=== PATIENT | male | born 1980 | race Caucasian/White ===

== ENCOUNTER 2019-08-17 13:02 | Inpatient (IN) ==
[2019-08-17] MEDS ORDERED: ASPIRIN PO ONE (13:15)
--- NOTE | 2019-08-17 13:36 | Diag Imaging Result Doc PS360 ---
CHEST-2 VIEWS - 08/17/2019 INDICATION: UT COMPARISON: None FINDINGS: There is cardiomegaly. There is mild pulmonary vascular congestion. No infiltrates or edema. No pneumothorax or pleural effusion. IMPRESSION: Cardiomegaly and mild pulmonary vascular congestion. Electronically signed by Nitesh Jones 08/17/2019 1:34 PM
[2019-08-17 13:42] LABS: BASO# 0.06 X1000 (0.0-0.2); BASO% 0.5 % (0.0-0.8); EOS# 0.08 X1000 (0.0-0.7); EOS% 0.7 % (0.0-10.0); HEMATOCRIT 44.5 % (42.0-52.0); HEMOGLOBIN 14.4 g/dL (14.0-18.0); IMM GRAN# 0.05 X1000 (0.0-0.04); IMM GRAN% 0.4 % (0.0-0.5); LYMPH% 16.6 % (20.5-51.1); MCH 26.4 PG (27-31); MCHC 32.4 g/dL (33-37); MCV 81.5 FL (81-99); MONO# 0.67 X1000 (0.11-0.59); MONO% 5.8 % (1.7-9.3); MPV 10.6 FL (7.4-10.4); NEUT# 8.71 X1000 (1.4-6.5); PLT 338 X1000 (130-400); RBC 5.46 XMIL (4.7-6.1); RDW 16.6 % (11.5-14.5); WBC 11.47 X1000 (4.8-10.8)
[2019-08-17 13:58] LABS: INR 1.05; PROTIME 13.8 Seconds (11.0-16.0)
[2019-08-17 13:59] LABS: PTT 27.7 Seconds (22.3-41.8)
--- NOTE | 2019-08-17 14:08 | EKG Report ---
Test Performed on : 08/17/2019 12:26:56 PM Test Reason : RECENT SC Blood Pressure : / mmHG Vent. Rate : 119 BPM Atrial Rate : 119 BPM P-R Int : 142 ms QRS Dur : 072 ms QT Int : 444 ms P-R-T Axes : 081 238 186 degrees QTc Int : 624 ms Sinus tachycardia. Possible Left atrial enlargement Right superior axis deviation Right ventricular hypertrophy Inferior infarct , age undetermined Anteroseptal infarct , age undetermined Marked ST abnormality, possible lateral subendocardial injury Prolonged QT Abnormal ECG No previous ECGs available Confirmed by Mando MCLAUGHLIN, Jay Shipley ([id number]) on 08/18/2019 2:35:02 PM
[2019-08-17 14:33] LABS: AGAP 14; ALB/GLOB RATIO 1.5; ALBUMIN 4.4 g/dL (3.5-5.0); ALKALINE PHOSPHATASE 159 U/L (32-122); BUN 12 mg/dL (8-22); CALCIUM 9.6 mg/dL (8.8-10.2); CHLORIDE 102 mmol/L (98-107); COSMO 276; CREATININE 0.8 mg/dL (0.7-1.2); ESTIMATED GFR > 60; GLUCOSE 140 mg/dL (70-104); GOT 27 U/L (10-34); GPT 49 U/L (10-44); SODIUM 137 mmol/L (136-145); TCO2 21 mmol/L (25-35); TOTAL BILIRUBIN 0.45 mg/dL (0.20-1.00); TOTAL PROTEIN 7.4 g/dL (6.3-8.3)
[2019-08-17] MEDS ORDERED: PRINIVIL PO SCH (18:15)
[2019-08-17] MEDS ORDERED: LOVENOX SUBQ ONE (19:06)
[2019-08-17] MEDS ORDERED: VASOTEC IV PRN (19:07)
[2019-08-17] MEDS: LOPRESSOR PO SCH (19:41)
[2019-08-17] MEDS: LIPITOR PO SCH (19:42)
[2019-08-17] MEDS: PRINIVIL PO SCH (19:42)
[2019-08-17] MEDS ORDERED: LOPRESSOR PO SCH (21:00)
[2019-08-18] MEDS: RESTORIL PO PRN ×2 (00:33→22:36)
[2019-08-18] MEDS: PRINIVIL PO SCH ×3 (00:35→22:36)
[2019-08-18] MEDS: LIPITOR PO SCH ×2 (00:36→22:36)
[2019-08-18] MEDS: LOPRESSOR PO SCH ×4 (00:36→22:36)
--- NOTE | 2019-08-18 07:22 | EKG Report ---
Test Performed on : 08/18/2019 06:57:21 AM Test Reason : chest pain Blood Pressure : / mmHG Vent. Rate : 105 BPM Atrial Rate : 105 BPM P-R Int : 170 ms QRS Dur : 088 ms QT Int : 314 ms P-R-T Axes : 063 251 058 degrees QTc Int : 415 ms Sinus tachycardia. Possible Left atrial enlargement Right superior axis deviation Right ventricular hypertrophy Inferior infarct (cited on or before 17-AUG-2019) Anteroseptal infarct (cited on or before 17-AUG-2019) Abnormal ECG When compared with ECG of 17-AUG-2019 12:26, (Unconfirmed) Serial changes of evolving Anteroseptal infarct present Confirmed by Mnado MCLAUGHLIN, Jay Shipley ([id number]) on 08/18/2019 2:35:51 PM
[2019-08-18] MEDS: ASPIRIN PO SCH (08:36)
--- NOTE | 2019-08-18 08:36 | Diag Imaging Result Doc PS360 ---
EXAM: CHEST-2 VIEWS 08/18/2019 HISTORY: heart cath TECHNIQUE: PA and lateral chest COMMENT: The appearance of the chest has not changed significantly since 08/17/2019. There are no earlier previous studies available for comparison. There is a slightly prominent interstitial pattern in the lung bases. There may be some fluid in the fissures particularly the minor fissure. IMPRESSION: Minimal interstitial pulmonary edema and pleural fluid collections. Electronically signed by Tommy Sanchez 08/18/2019 8:34 AM
[2019-08-18] MEDS ORDERED: CLAVE TWINSITE 32 IN 11959 ONE (09:43)
[2019-08-18] MEDS ORDERED: NS 1,000 ML ONE (09:43)
[2019-08-18] MEDS ORDERED: DEMEROL ONE (09:43)
[2019-08-18] MEDS ORDERED: VERSED ONE (09:43)
[2019-08-18] MEDS ORDERED: ANESTHESIA PB SET 88 IN 5742 ONE (09:43)
[2019-08-18] MEDS ORDERED: MORPHINE ONE ×2 (10:02→10:39)
--- NOTE | 2019-08-18 10:24 | ECHO REPORT ---
ORDER DATE: 08/17/2019 INDICATION: NV. FINDINGS: 1. Right atrium appears normal in size at 3.4 cm. 2. Trace tricuspid regurgitation. Insufficient data to estimate RV systolic pressure. 3. Normal RV size and systolic function. 4. No significant pulmonic insufficiency. 5. Mild left atrial enlargement with a volume index of 34. 6. No mitral valve prolapse. Trace mitral regurgitation. 7. Normal LV size, end-diastolic dimension of 4.8 cm. Normal wall thicknesses with a posterior and interventricular septal wall thickness of 1.1 cm each. LV systolic function appears to be reduced on the order of 30%. There is anterior septal, anterior and apical wall motion abnormalities. Unfortunately echo contrast was not used on this study and cannot completely rule out LV thrombus. 8. Aortic valve opens well. No evidence of stenosis or insufficiency. 9. Aorta appears normal in visualized segments. 10. No pericardial effusion seen. cc: MD Yvon Franco MD
[2019-08-18] MEDS ORDERED: NS 1,000 ML IV SCH (11:30)
--- NOTE | 2019-08-18 11:43 | EKG Report ---
Test Performed on : 08/18/2019 11:30:32 AM Test Reason : post heart cath Blood Pressure : / mmHG Vent. Rate : 098 BPM Atrial Rate : 098 BPM P-R Int : 170 ms QRS Dur : 090 ms QT Int : 348 ms P-R-T Axes : 057 250 064 degrees QTc Int : 444 ms Normal sinus rhythm. Possible Left atrial enlargement Right superior axis deviation Anteroseptal infarct (cited on or before 17-AUG-2019) Abnormal ECG When compared with ECG of 18-AUG-2019 06:57, (Unconfirmed) No significant change was found Confirmed by Mando MCLAUGHLIN, Jay Shipley ([id number]) on 08/18/2019 2:36:31 PM
--- NOTE | 2019-08-18 13:15 | ECHO REPORT ---
ORDER DATE: 08/18/2019 INTERPRETING PHYSICIAN: Dr. Jamil Henson DESCRIPTION OF STUDY: A 2D echocardiogram limited with Optison to assess left ventricular function. ECHOCARDIOGRAPHIC MEASUREMENTS: 1. Interventricular septum 0.8. 2. Left ventricular diastolic diameter 6.3. 3. Left ventricular posterior wall 0.9. SUMMARY OF THE 2-DIMENSIONAL IMAGIN. Optison was injected. 2. Left ventricle was dilated with severely reduced systolic function. Estimated ejection fraction of 25%. 3. Left ventricular apex is dyskinetic. There is a suggestion off layered thrombus in the dyskinetic segment of the left ventricular apex. 4. There is no pericardial effusion. cc: MD Yvon Denson MD
--- NOTE | 2019-08-18 13:35 | CARDIAC CATH REPORT ---
DATE: 08/18/2019 REQUESTING: Yvon Verma MD. REASON : Patient with recent myocardial infarction, congestive heart failure. PROCEDURES: 1. Left heart catheterization. 2. Selective bilateral coronary arteriography. 3. Left ventriculography. 4. Opacification of right femoral artery with deployment of 6 [place]uvian Angio-Seal device. DESCRIPTION: The patient was brought to the [facility] in a fasting state. He received 1 dose of Demerol 25 mg, 2 doses of morphine 3 mg, and 1 dose of Versed 1 mg for sedation. The right groin was infiltrated with lidocaine and a 6 [place] sheath was inserted into the right femoral artery by following the modified Seldinger technique. Then using a 6 [place]ian left Tori 4 catheter, the left coronary artery was selectively opacified in multiple projections. Thereafter, I attempted to cannulate the right coronary artery first with a right Tori catheter, however, this was not feasible initially. Then we performed an LV gram using a 6 [place]uvian multipurpose catheter in the 30 degree DUVAL projection and 60 degree MEG projection by hand injection. The LVEDP was noted to be markedly elevated. Then, we proceeded to perform opacification of the right coronary artery. I attempted several catheters using the multipurpose catheter 6 [place]uvian A- 2, then we used the Amplatz right 2 and a 6 [place] right Tori 5. Finally when we fell back on the right Tori 4 and eventually were able to cannulate the ostium. It seemed like the plane of the right coronary artery had been tilted possibly because of the enlargement of the left ventricle. At any rate, the takeoff of the right coronary artery was somewhat vertical and sort of outward to the right. Then after this, we removed all the catheters, the sheath was flushed. The right femoral artery opacified and then Angio-Seal device was deployed successfully. The patient tolerated the procedure well without complications. SUMMARY OF HEMODYNAMIC FINDINGS: Central aortic pressure 111/89, left ventricular pressure 126/38, post LV gram 117/34, final central aortic pressure 122/91. This indicates marked elevation of the left ventricular end-diastolic pressure. SUMMARY OF THE ANGIOGRAPHIC FINDINGS: 1. Left main coronary artery: The vessel appears to be anatomically normal, divides into LAD and circumflex. 2. Left anterior descending coronary artery: This vessels give rise to a proximal septal and then a proximal large diagonal and then it becomes completely occluded. There is a trickle of blood going into what appears to be a totally occluded LAD. The LAD is very atretic. 3. Circumflex coronary artery: The circumflex coronary artery is a nondominant vessel. It basically gives rise to a first tiny lateral vessel then gives rise to a medium size lateral branch and then distally gives rise to a good size posterolateral vessel and a terminal tiny A- V branch. Left circumflex coronary artery appears to be free of any major stenosis. 4. Right coronary artery: The right coronary artery had a vertical rightward takeoff. The vessel proximally seems to be free of any serious obstruction. There is a 25% plaque proximally and another one 30%. The right coronary artery gives rise to a sinus kendra branch and right ventricular branch. Distally gives rise to a posterior descending branch which is normal, and also normal-looking posterolateral vessel. I did not appreciate any great deal of collateral going into the LAD territory. LEFT VENTRICULOGRAM: Left ventriculogram in the 30 degree DUVAL projection and 60 degree DUVAL projection shows akinesis of the anteroapical and septal portion of the left ventricle. Global ejection fraction is probably in the order of 30%. The root of the aorta is somewhat dilated. No aortic regurgitation was noted when I injected the right coronary artery nonselectively. OPACIFICATION OF THE RIGHT FEMORAL ARTERY: The right femoral artery is unremarkable. Angio-Seal device was deployed successfully. SUMMARY: This study shows: 1. Severe left coronary artery disease with total occlusion of the left anterior descending coronary artery in its mid section immediately after the origin of a large septal branch and a major diagonal branch. 2. Mild disease in the right coronary artery, sequential plaques of 25% to 30% in the proximal and mid section. 3. Unremarkable circumflex. 4. Dilated left ventricle with severely impaired systolic function in the range of 30% with anteroapical and septal akinesis to dyskinesis. 5. Markedly elevated LVEDP. 6. Unremarkable right femoral artery with deployment of 6 [place]uvian Angio-Seal device. There was no evidence of any significant degree of mitral valve regurgitation and there was no evidence of aortic stenosis nor evidence of significant aortic regurgitation on nonselective opacification of the right coronary artery during the attempt at opacifying it. RECOMMENDATIONS: At this time, the patient will be treated medically. We will probably consider doing a thallium viability study or a cardiac MR to determine viability of the anteroapical portion and then decide if we need to pursue any significant procedure like intervening on the totally occluded LAD. My suspicion is that probably he will have to be just treated medically. cc: MD Yvon Zaidi MD
[2019-08-18] MEDS ORDERED: LASIX IV ONE (19:03)
[2019-08-18] MEDS ORDERED: COUMADIN PO SCH (21:00)
[2019-08-18] MEDS: ALDACTONE PO SCH (22:37)
--- NOTE | 2019-08-18 23:23 | PROGRESS NOTE ---
DATE: 08/18/2019 SUBJECTIVE: The patient continues without chest discomfort or shortness of breath on room air. He had cardiac catheterization/coronary angiography performed today which demonstrated occluded left anterior descending coronary artery, giving rise to a diagonal branch and septal environmental services aide, with evidence of previous anteroapical infarction; mild coronary atherosclerosis evident in dominant right coronary artery; elevated left ventricular end-diastolic pressure demonstrated. OBJECTIVE: Blood pressure 118/79, heart rate 95, oxygen saturation 97% on room air. There is no significant jugular venous distention. Chest is clear to auscultation. Cardiac exam reveals a regular rate and rhythm without appreciable murmur or gallop. There is no evidence of peripheral edema. LABORATORY DATA: Includes initial troponin 21 with followup troponin of 24. Initial CPK is 56 with followup CPK 65. Triglycerides 252, total cholesterol 116, LDL cholesterol 77, VLDL cholesterol 50, HDL cholesterol 26. IMPRESSION: 1. Recent myocardial infarction involving mid left anterior descending coronary artery, with resultant anteroapical infarct. 2. Possible layered thrombus and dyskinetic apex. 3. Elevated left ventricular end-diastolic pressure consistent with acute systolic heart failure. 4. Hypertension. 5. Hyperlipidemia. RECOMMENDATIONS: 1. Continue medical management of patient's coronary atherosclerosis, as the patient appears to have completed anteroapical infarction, based on clinical presentation and angiographic findings. 2. Add diuretic therapy, given significantly elevated left ventricular end-diastolic pressure. We will initiate Lasix low dose as well as spironolactone. 3. Anticoagulate, given left ventricular thrombus and fairly recent apical myocardial infarction, with apical dyskinesis. cc: Yvon Verma MD
[2019-08-19 06:33] LABS: INR 1.07
[2019-08-19] MEDS: PRINIVIL PO SCH (08:02)
[2019-08-19] MEDS: ALDACTONE PO SCH (08:02)
[2019-08-19] MEDS: ASPIRIN PO SCH (08:02)
[2019-08-19] MEDS: LOPRESSOR PO SCH (08:03)
[2019-08-19] MEDS ORDERED: LASIX PO SCH (09:00)
[2019-08-19 11:55] VITALS: BP 109/76
--- NOTE | 2019-08-19 19:02 | PROGRESS NOTE ---
DATE: 08/19/2019 SUBJECTIVE: Patient continues without chest discomfort or dyspnea on room air. He has ambulated several times. OBJECTIVE: Blood pressure 109/76, heart rate 91, oxygen saturation 98% on room air. There is no significant jugular venous distention.Chest: Clear to auscultation bilaterally. Cardiac Exam: Reveals a regular rate and rhythm without appreciable murmur or gallop. There is no evidence of peripheral edema. LABORATORY DATA: Includes a pro-time 14.0, INR 1.07. Creatinine 0.9. Magnesium 2.2. IMPRESSION: 1. Recent myocardial infarction involving left anterior descending coronary with resultant anteroapical infarct. 2. Layered thrombus and dyskinetic apex. 3. Systolic heart failure. Patient appears to be improved with respect to this. 4. Hypertension. 5. Hyperlipidemia. RECOMMENDATIONS: 1. Continue current medical management of patient's coronary atherosclerosis as patient appears to have completed anteroapical infarction based on clinical presentation and angiographic findings. 2. Continue current diuretic therapy. 3. Continue warfarin for anticoagulation given left ventricular thrombus and fairly recent apical myocardial infarction and apical dyskinesis. 4. Given clinical stability we will discharge to home this afternoon. Patient to followup in approximately 2 weeks. Patient to have followup pro-time/INR in approximately 4 days after discharge. cc: Yvon Verma MD
== END 2019-08-19 14:57 | disposition home or self-care (01) | DRG 287 ==
LOC: 2N 15:01
PROVIDERS: ADMIT Internal Medicine Cardiovascular Disease; ATTEND Internal Medicine Cardiovascular Disease